=== PATIENT | female | born 1950 | race Caucasian/White ===

== ENCOUNTER 2023-01-30 06:58 | Day surgery (SDC) | payer MEDICARE, SELFPAY ==
--- NOTE | 2023-01-29 13:55 | HO.ANESPROP2 ---
Documented by User: Adele Ortiz NP 01/29/23 14:00 HPI - Anesthesia Eval Consult details Narrative: 72yo F for Colonoscopy Eliquis for afib PMFSH Past Medical History Medical History Atrial fibrillation COPD (chronic obstructive pulmonary disease) External hemorrhoid HTN (hypertension) Insomnia Osteoarthritis Surgical History Surgical History H/O cardiac radiofrequency ablation H/O colonoscopy H/O hernia repair H/O ligation of vein H/O tubal ligation History of colon resection Social History Social History Patient Tobacco Use Status: Former Tobacco user Tobacco use type: Cigarette Use of substances other than those prescribed or required for medical reasons: No Are you DNR?: No Advance Directives: No Advance Directives Information Provided: Yes Meds Allergies Allergy/AdvReac Type Severity Reaction Status Date / Time codeine Allergy Intermediate Rash Verified 01/30/23 07:20 azithromycin [AZITHROMYCIN] Allergy Mild RASH Verified 01/30/23 07:20 latex [LATEX] Allergy Mild RASH,ITCHY Verified 01/30/23 07:20 Erythromycin Allergy Unknown DIARRHEA Uncoded 01/30/23 07:20 IF ON TO MANY DAYS. Home Medications Medication Instructions Recorded Confirmed Last Taken Type apixaban 5 mg tablet (Eliquis) 5 mg PO BID 01/29/23 01/30/23 01/26/23 History atenolol 50 mg tablet 50 mg PO DAILY 01/29/23 01/30/23 01/30/23 History atorvastatin 10 mg tablet 10 mg PO DAILY 01/29/23 01/29/23 Unknown History lorazepam 1 mg tablet 1 mg PO DAILY PRN Anxiety 01/29/23 01/29/23 Unknown History propafenone 225 mg tablet 225 mg PO BID 01/29/23 01/30/23 01/30/23 History Exam Exam Date and Time: January 29, 2023 1355 Narrative Narrative: EKG 08/2022 NSR @ 65 with normal axis and normal voltage Nml Echo per 08/2022 cardiac visit Assessment and Plan Assessment Anesthesia Assessment: Chart Reviewed Documented by User: Maggie Leblanc MD 01/30/23 08:05 HPI - Anesthesia Eval Consult details Narrative: 72yo F for Colonoscopy Eliquis for afib. Last dose 01/26/23 PMFSH Past Medical History Medical History Atrial fibrillation COPD (chronic obstructive pulmonary disease) External hemorrhoid HTN (hypertension) Insomnia Osteoarthritis Family History Family history of problems with anesthesia: No Surgical History Surgical History H/O cardiac radiofrequency ablation H/O colonoscopy H/O hernia repair H/O ligation of vein H/O tubal ligation History of colon resection History of Problems with Anesthesia: No Social History Social History Patient Tobacco Use Status: Former Tobacco user Tobacco use type: Cigarette Use of substances other than those prescribed or required for medical reasons: No Are you DNR?: No Advance Directives: No Advance Directives Information Provided: Yes Meds Allergies Allergy/AdvReac Type Severity Reaction Status Date / Time codeine Allergy Intermediate Rash Verified 01/30/23 07:20 azithromycin [AZITHROMYCIN] Allergy Mild RASH Verified 01/30/23 07:20 latex [LATEX] Allergy Mild RASH,ITCHY Verified 01/30/23 07:20 Erythromycin Allergy Unknown DIARRHEA Uncoded 01/30/23 07:20 IF ON TO MANY DAYS. Home Medications Medication Instructions Recorded Confirmed Last Taken Type apixaban 5 mg tablet (Eliquis) 5 mg PO BID 01/29/23 01/30/23 01/26/23 History atenolol 50 mg tablet 50 mg PO DAILY 01/29/23 01/30/23 01/30/23 History atorvastatin 10 mg tablet 10 mg PO DAILY 01/29/23 01/29/23 Unknown History lorazepam 1 mg tablet 1 mg PO DAILY PRN Anxiety 01/29/23 01/29/23 Unknown History propafenone 225 mg tablet 225 mg PO BID 01/29/23 01/30/23 01/30/23 History Exam Height,Weight and Vital Signs: Height 5 ft 3 in Weight 63.049 kg Vital Signs Temp Pulse Resp BP Pulse Ox O2 Del Method 01/30/23 07:29 97.7 F 75 16 134/72 100 Room Air Airway Mallampati Class: II TM Dist: >3cm Neck ROM: Full Loose/Missing/Broken Teeth: No (Denies broken, loose, missing teeth) Heart: RRR Lungs: CTAB Assessment and Plan Assessment Anesthesia Assessment: Anesthesia Plan Discussed Final Anesthetic Review Family History of Problems with Anesthesia: No History of Problems with Anesthesia: No NPO: Yes ASA Class: II Final Preanesthetic Review: No Changes in Pt Med Stat, Meds/Allgs Chart Reviewed, Consent Obtained/Reviewed and Anes Risks/Benef Reviewed Patient Risk: Intermediate Procedure Risk: Low Assessment/Block/Sedation in SS: Assess/Block/Sedation-SS Anesthetic Plan Anesthetic Plan: MAC: Disposition: Standard PACU
[2023-01-30 07:21] VITALS: BMI 24.6
[2023-01-30 07:29] VITALS: BP 134/72; PULSE 75; RESP 16; TEMP 36.5; O2SAT 100
[2023-01-30] MEDS: Lactated Ringers 1,000 ML 100 ML IVCONT (07:44)
[2023-01-30 08:44] VITALS: BP 106/51; PULSE 65; RESP 14; TEMP 36.1; O2SAT 98
[2023-01-30 09:06] VITALS: BP 135/70; PULSE 62; RESP 17; TEMP 36.1; O2SAT 98
--- NOTE | 2023-01-30 10:40 | OP_ITS ---
DATE OF SERVICE: 01/30/2023 SURGEON: Delvin Mcdaniel MD INDICATIONS: Colon cancer screening and prior history of adenomatous colon polyps. PREOPERATIVE DIAGNOSIS: POSTOPERATIVE DIAGNOSIS: PROCEDURE PERFORMED: Colonoscopy to the terminal ileum with snare polypectomy. ESTIMATED BLOOD LOSS: COMPLICATIONS: ANESTHESIA: Monitored anesthesia care. ASSISTANTS: SPECIMENS: DESCRIPTION OF PROCEDURE: The procedure was performed on 01/30/2023. A history and physical were performed. The risks and benefits of the procedure were explained to the patient. Informed consent was obtained. The patient was placed in the left lateral decubitus position. A digital rectal exam was performed and was found to be normal. The Olympus pediatric video colonoscope was introduced into the rectum and advanced to the cecum without difficulty. The cecum was identified by transillumination, palpation, and identification of ileocecal valve. Examination was performed. The scope was removed. She tolerated the procedure well and returned to recovery area in stable condition. FINDINGS: The terminal ileum was examined and appeared normal. The visualized colonic mucosa was normal. The quality of prep was good. A single polyp was identified and removed with a snare at 30 cm from the anal verge. This measured approximately 6 mm. No other polyps were identified. There was mild sigmoid diverticulosis. Retroflexed examination was normal. IMPRESSION: Colon polyp. RECOMMENDATION: Follow up the biopsy results. MD REJI Bianchi/JOANIEL / [id number]
== END 2023-01-30 09:41 | disposition home or self-care (01) ==
PROVIDERS: PCP Internal Medicine; Visit Provider Internal Medicine Gastroenterology
PROC: 0DJD8ZZ Inspection of Lower Intestinal Tract, Via Natural or Artificial Opening Endoscopic (ICD-10-PCS; CPT 45378; principal; 2023-01-30 08:00)
DX: Z12.11 Encounter for screening for malignant neoplasm of colon (principal); Z86.010 Personal history of colon polyps; Z83.71 Family history of colonic polyps; D12.5 Benign neoplasm of sigmoid colon; K57.30 Diverticulosis of large intestine without perforation or abscess without bleeding; K59.00 Constipation, unspecified; I10 Essential (primary) hypertension; J44.9 Chronic obstructive pulmonary disease, unspecified; I48.91 Unspecified atrial fibrillation; M19.90 Unspecified osteoarthritis, unspecified site; Z79.01 Long term (current) use of anticoagulants; Z79.899 Other long term (current) drug therapy; Z90.49 Acquired absence of other specified parts of digestive tract; Z88.8 Allergy status to other drugs, medicaments and biological substances; Z91.040 Latex allergy status
CPT/HCPCS: 45385; 88305